=== PATIENT | male | born 1970 | race Caucasian/White ===

== ENCOUNTER 2022-12-01 11:27 | Emergency (ER) | payer MEDICAID ==
[~2022-12-01] VITALS: Ht 167.6 cm; Wt 79.5 kg
[2022-12-01 11:34] VITALS: TEMP 97.5
[2022-12-01] MEDS ORDERED: ACETAMINOPHEN 500 MG TABLET PO ONE (11:45)
[2022-12-01] MEDS: PERTUSS(ACELL),DIPH,TET VAC/PF 0.5 ML SYRINGE IM. ONE ×2 (12:13→12:31)
[2022-12-01 12:15] VITALS: BP 137/81; PULSE 88; RESP 16
== END 2022-12-01 13:46 | disposition home or self-care (01) ==
LOC: EMS 11:32
DX: S01.01XA Laceration without foreign body of scalp, initial encounter (principal); W19.XXXA Unspecified fall, initial encounter; Y93.89 Activity, other specified; Y92.89 Other specified places as the place of occurrence of the external cause; Y99.8 Other external cause status
CPT/HCPCS: 12001; 70450; 72125; 90715; 99284